=== PATIENT | male | born 1980 | race Two or more races ===

== ENCOUNTER 2024-02-15 11:39 | Emergency (ER) | payer MEDICAID, OTHER ==
[~2024-02-15] VITALS: Ht 182.9 cm; Wt 116.0 kg
--- NOTE | 2024-02-15 12:07 | ED.PDOC ---
History of Present Illness HPI Comments This is a 43-year-old male who comes in with chief complaint of left ankle pain. The patient states that he was libertarian at his house and twisted his ankle last night. The patient denies any other complaints. The patient denies any nausea, vomiting or diarrhea. There has been no fever or chills. Chief Complaint: Lower Extremity Time Seen by MD: 11:50 Primary Care Provider: NONE Reviewed Notes: Nurses Notes, Medications, Allergies Allergies: Coded Allergies: NO KNOWN ALLERGIES (Unverified , 02/15/24) Information Source: Patient Mode of Arrival: Ambulatory Severity: Moderate Timing: Hours Duration: Since onset Prehospital treatment: None Associated signs and symptoms Left ankle injury Past Medical History PAST MEDICAL HISTORY: Arthritis, DM, High Lipids, HTN Surgical History: Cholecystectomy Family History Family History: Family hx of Cancer, Family hx of heart ese Social History Smoker: Cigarettes Alcohol: Occasionally Drugs: Denies Drug Use Lives In: Home Constitutional: denies: chills, diaphoresis, fatigue, fever, malaise, sweats, weakness, others EENTM: denies: blurred vision, double vision, ear bleeding, ear discharge, ear drainage, ear pain, ear ringing, eye pain, eye redness, hearing loss, mouth pain, mouth swelling, nasal discharge, nose bleeding, nose congestion, nose pain, photophobia, tearing, throat pain, throat swelling, voice changes, others Respiratory: denies: cough, hemoptysis, orthopnea, SOB at rest, shortness of breath, SOB with excertion, stridor, wheezing, others Cardiovascular: denies: chest pain, dizzy spells, diaphoresis, Dyspnea on exertion, edema, irregular heart beat, left arm pain, lightheadedness, palpitations, PND, syncope, others Gastrointestinal: denies: abdomen distended, abdominal pain, blood streaked bowels, constipated, diarrhea, dysphagia, difficulty swallowing, hematemesis, melena, nausea, poor appetite, poor fluid intake, rectal bleeding, rectal pain, vomiting, others Genitourinary: denies: burning, dysuria, flank pain, frequency, hematuria, incontinence, penile discharge, penile sore, pain, testicle pain, testicle swelling, urgency, others Neurological: denies: dizziness, fainting, headache, left sided numbness, left sided weakness, numbness, paresthesia, pre-existing deficit, right sided numbness, right sided weakness, seizure, speech problems, tingling, tremors, weakness, others Musculoskeletal: reports: others (Left ankle injury); denies: back pain, gout, joint pain, joint swelling, muscle pain, muscle stiffness, neck pain Integumetry: denies: bruises, change in color, change in hair/nails, dryness, laceration, lesions, lumps, rash, wounds, others Allergic/Immunocompromised: denies: Difficulty Healing, Frequent Infections, Hives, Itching, others Hematologic/Lymphatic: denies: anemia, blood clots, easy bleeding, easy bruising, swollen glands, others Endocrine: denies: excessive hunger, excessive sweating, excessive thirst, excessive urination, flushing, intolerance to cold, intolerance to heat, unexplained weight gain, unexplained weight loss, others Psychiatric: denies: anxiety, bipolar disorder, depression, hopeless, panic disorder, schizophrenia, sleepless, suicidal, others Physical Exam General Appearance: Moderate Distress HEENT: Normal ENT Inspection, Pharynx Normal, TMs Normal Neck: Full Range of Motion, Non-Tender, Normal, Normal Inspection Respiratory: Chest Non-Tender, Lungs Clear, No Accessory Muscle Use, No Respiratory Distress, Normal Breath Sounds Cardiovascular: No Edema, No JVD, No Murmur, No Gallop, Normal Peripheral Pulses, Regular Rate/Rhythm Breast Exam: Deferred Gastrointestinal: No Organomegaly, Non Tender, No Pulsatile Mass, Normal Bowel Sounds, Soft Genitalia: Deferred Pelvic: Deferred Rectal: Deferred Extremities: No calf tenderness, Normal capillary refill, No pedal edema Musculoskeletal : Location: Left Extremity Location: Ankle Apperance: Swelling, Limited ROM, Tenderness: Moderate Neurologic: Alert, media theorist and author of II-XII nml as Tested, No Motor Deficits, Normal Affect, Normal Mood, No Sensory Deficits Cerebellar Function: Normal Reflexes: Normal Skin: Dry, Normal Color, Warm Lymphatic: No Adenopathy Was a procedure done? Was a procedure done?: No Differential Dx Considerations may include: Fracture, strain, dislocation X-Ray, Labs, Meds, VS Vital Signs Date Time Temp Pulse Resp B/P (MAP) Pulse Ox O2 Delivery O2 Flow Rate FiO2 02/15/24 13:20 98.7 124 18 162/95 (117) 97 98.7 02/15/24 13:20 124 18 97 Room Air 02/15/24 11:53 98.7 122 18 153/107 (122) 96 154/96 (115) Current Medications Medications (Trade) Dose Ordered Sig/Jocelin Route Start Time Stop Time Status Last Admin Acetaminophen/ Hydrocodone Bitart ([place] 10/325MG Tab) 1 tab ONCE ONCE PO 02/15/24 13:30 02/15/24 13:31 DC 02/15/24 13:29 X-ray of the left ankle shows: FINDINGS/IMPRESSION: Comminuted and mildly displaced fracture of the distal fibular metaphysis. There is intra-articular extension of the fracture. Ankle mortise is intact. Diffuse soft-tissue swelling most prominent at the lateral malleolus. The patient was placed in a posterior splint and stirrup splint The patient was given [place] here in the emergency department's The patient was being discharged with a diagnosis of left ankle fracture The patient will return to the emergency department's condition worsens The patient was also given crutches and gait training. Images Reviewed?: Images reviewed and evaluated by me Time of 1ST Reevaluation: 12:06 Reevaluation 1ST: Unchanged Patient Education/Counseling: Diagnosis, Treatment, Prognosis, Need For Follow Up Family Education/Counseling: No Family Present Departure 1 Departure Time of Disposition: 13:52 Impression: Primary Impression: Closed left ankle fracture Qualified Codes: S82.892A - Other fracture of left lower leg, initial encounter for closed fracture Disposition: 01 HOME / SELF CARE / HOMELESS Condition: Fair Discharged With: Self Critical Care Note Critical Care Time?: No Stability Stability form required: No Heart Score Heart Score: Heart Score Response (Comments) Value History N/A 0 EKG N/A 0 Age N/A 0 Risk Factors N/A 0 Troponin N/A 0 Total 0 I personally scribed for DEJAH ROMERO MD ([email or web address]) on 02/15/24 at 12:47. Electronically submitted by Stevo Yee ([email or web address]). DEJAH ROMERO MD Feb 15, 2024 12:07
--- NOTE | 2024-02-15 12:45 | DVH ---
CLINICAL INDICATION: INJRY R/O FX TECHNIQUE: XY L ANKLE 3 VIEW Comparison: None FINDINGS/IMPRESSION: Comminuted and mildly displaced fracture of the distal fibular metaphysis. There is intra-articular e xtension of the fracture. Ankle mortise is intact. Diffuse soft-tissue swelling most prominent at the lateral malleolus.
[2024-02-15 13:20] VITALS: BP 162/95; PULSE 124; RESP 18; TEMP 98.7; O2SAT 97
[2024-02-15] MEDS: HYDROcodone-ACET 10/325MG TAB PO ONE (13:29)
== END 2024-02-15 14:41 | disposition home or self-care (01) ==
LOC: ER 11:39
DX: S82.892A Other fracture of left lower leg, initial encounter for closed fracture (principal); E11.9 Type 2 diabetes mellitus without complications; E78.5 Hyperlipidemia, unspecified; I10 Essential (primary) hypertension; F17.210 Nicotine dependence, cigarettes, uncomplicated; Z90.49 Acquired absence of other specified parts of digestive tract; X50.1XXA Overexertion from prolonged static or awkward postures, initial encounter; Y93.89 Activity, other specified; Y92.89 Other specified places as the place of occurrence of the external cause; Y99.8 Other external cause status
CPT/HCPCS: 29515; 73610